=== PATIENT | male | born 1995 | race Two or more races ===

== ENCOUNTER 2022-01-26 14:47 | Emergency (ER) | payer MEDICAID ==
[~2022-01-26] VITALS: Ht 172.7 cm; Wt 82.1 kg
--- NOTE | 2022-01-26 15:15 | NUR ---
RECEIVED PT 26 YRS MALE CAME BY HUSSAIN Jameson/P MARLI AND HED HIS HEAD ON FLOOR (STREAT) LAUCERATION ON RT SIDE OF FACE NO ALOC AWAKE AND ALERT
[2022-01-26] MEDS ORDERED: TDAP [DIPH/PERTUSSIS/TET] 0.5 ML VIAL IM ONE ×2 (15:30→15:36)
[2022-01-26] MEDS ORDERED: ACETAMINOPHEN ES 500 MG TABLET PO ONE (15:30)
--- NOTE | 2022-01-26 15:30 | NUR ---
SEEN BY DR. ZEPEDA AND MICHAELA WETZELOR SUPPORT LAG ROLE DONE FOR PROTECT SPINAL AND Hard c collore apped
[2022-01-26] MEDS ORDERED: ACETAMINOPHEN ES 500 MG TABLET ONE (15:36)
--- NOTE | 2022-01-26 15:40 | NUR ---
TO CT SCAN OF HEAD
[2022-01-26] MEDS ORDERED: HYDROCODONE/APAP 5/325MG TABLET ONE ×2 (16:23→16:25)
[2022-01-26] MEDS ORDERED: BACI/NEOM/POLY B OINT PKT 1 UDPKT PACKET ONE (16:24)
[2022-01-26] MEDS ORDERED: LIDOCAINE 1%-EPI 1:100,000 20 ML VIAL TP ONE (16:30)
[2022-01-26] MEDS ORDERED: BACI/NEOM/POLY B OINT PKT 1 UDPKT PACKET TP ONE (16:30)
[2022-01-26] MEDS ORDERED: HYDROCODONE/APAP 5/325MG TABLET PO ONE (16:30)
--- NOTE | 2022-01-26 17:00 | NUR ---
SUTURE DONE BY DUANE ZAVALA
[2022-01-26 17:19] VITALS: BP 133/84
--- NOTE | 2022-01-26 17:19 | NUR ---
D/C INSTRACTION GIVEN TO PT OSCAR AND VERBLIZED UNDERSTOOD D/C HOME WITH FALLOW UP CARE
== END 2022-01-26 17:47 | disposition home or self-care (01) ==
LOC: ER 14:51
DX: S01.111A Laceration without foreign body of right eyelid and periocular area, initial encounter (principal); W01.10XA Fall on same level from slipping, tripping and stumbling with subsequent striking against unspecified object, initial encounter; Y93.01 Activity, walking, marching and hiking; Y92.89 Other specified places as the place of occurrence of the external cause; Y99.8 Other external cause status
CPT/HCPCS: 70450-TC; 71045-TC; 72125-TC; 90715